=== PATIENT | male | born 1985 | race Caucasian/White ===

== ENCOUNTER → 2017-06-30 | Emergency (ER) | payer OTHER | END | disposition left against medical advice (07) | LOC: ER 21:16 | DX: Z53.20 Procedure and treatment not carried out because of patient's decision for unspecified reasons (principal) ==

== ENCOUNTER → 2017-07-19 | Outpatient (CLI) | payer OTHER | END | disposition home or self-care (01) | LOC: RAD 16:28 | DX: M25.551 Pain in right hip (principal); S73.003A Unspecified subluxation of unspecified hip, initial encounter ==

== ENCOUNTER 2019-07-25 10:30 | Outpatient (CLI) | payer OTHER | END 2019-07-25 15:00 | disposition home or self-care (01) | LOC: LAB 10:30 | DX: J11.1 Influenza due to unidentified influenza virus with other respiratory manifestations (principal); R05 Cough ==